=== PATIENT | female | born 1995 | race Caucasian/White ===

== ENCOUNTER 2017-12-15 19:35 | Emergency (ER) | payer OTHER ==
[2017-12-15] MEDS: ORPHENADRINE CITRATE 60 MG/2 ML VIAL. IM ×2 (20:16)
[2017-12-15] MEDS: KETOROLAC 60 MG/2 ML INJ. IM ×2 (20:16)
== END 2017-12-15 20:45 | disposition home or self-care (01) ==
LOC: ER 19:35
DX: S16.1XXA Strain of muscle, fascia and tendon at neck level, initial encounter (principal); F17.200 Nicotine dependence, unspecified, uncomplicated; Z88.1 Allergy status to other antibiotic agents; Z91.048 Other nonmedicinal substance allergy status; V49.49XA Driver injured in collision with other motor vehicles in traffic accident, initial encounter; Y92.412 Parkway as the place of occurrence of the external cause; Y93.89 Activity, other specified; Y99.8 Other external cause status
CPT/HCPCS: 70450; 72125; 96372; 99284-25; J1885; J2360

== ENCOUNTER 2018-09-08 13:32 | Emergency (ER) | payer OTHER ==
[~2018-09-08] VITALS: Ht 177.8 cm; Wt 65.8 kg
[~2018-09-08 13:32] MED LIST: CYCL10TA2 PO; NAPR-683 PO
[2018-09-08] MEDS ORDERED: ASPIRIN 325 MG TABLET PO ONE (14:30)
[2018-09-08 14:46] LABS: BASO % 1 % (0-3); EOS # 0.1 x10^3/uL (0.0-0.7); EOS % 2 % (0-3); HEMATOCRIT 41.2 % (36.0-47.0); HEMOGLOBIN 13.8 g/dL (12.0-15.5); LYMPH # 1.5 x10^3/uL (1.0-4.8); LYMPH % 22 % (24-48); MEAN CORPUSCULAR HEMOGLOBIN 32 pg (25-35); MEAN CORPUSCULAR HGB CONC 34 g/dL (31-37); MEAN CORPUSCULAR VOLUME 94 fL (79-100); MONO # 0.5 x10^3/uL (0.0-1.1); MONO % 8 % (0-9); NEUT # 4.6 x10^3uL (1.8-7.7); NEUT % 68 % (31-73); PLATELET COUNT 207 x10^3/uL (140-400); RED BLOOD COUNT 4.38 x10^6/uL (3.50-5.40); RED CELL DISTRIBUTION WIDTH 13.4 % (11.5-14.5); WHITE BLOOD COUNT 6.8 x10^3/uL (4.0-11.0)
[2018-09-08 14:56] LABS: BARBITURATES NEG (NEG); BENZODIAZEPINES NEG (NEG); CANNABINOIDS POS (NEG); COCAINE NEG (NEG); METHADONE NEG (NEG); OPIATES NEG (NEG); PHENCYCLIDINE NEG (NEG)
[2018-09-08 15:02] LABS: AMPHETAMINE/METHAMPHETAMINE NEG (NEG)
[2018-09-08 15:08] LABS: CALCIUM 9.7 mg/dL (8.5-10.1); CREATININE 0.9 mg/dL (0.6-1.0); GFR 77.6; MAGNESIUM 1.9 mg/dL (1.8-2.4)
--- NOTE | 2018-09-08 15:10 | RAD ---
Exam: AP portable chest History: Chest pain for 3 days. Comparison: None. Findings: The heart and mediastinal structures are within normal limits for size. Lungs are without infiltrate. No pleural effusion or pneumothorax is identified. Impression: 1. No acute cardiopulmonary process. Electronically signed by: Rob Jesus MD (09/08/2018 3:07 PM) [place] [id number]
--- NOTE | 2018-09-08 15:18 | EKG ---
[facility] [address] [place] [address] Test Date: 2018-09-08 Test Time: 14:37:36 Pat Name: JEANETH MCLEAN Department: Room: Gender: F Architectural Technologist: : 1995 Requested By: AMANDA KNOX Order Number: [id number] Reading MD: Mega Carlos MD Measurements Intervals [place] Rate: 71 P: 0 [place]: 146 QRS: 71 QRSD: 82 T: 47 QT: 340 QTc: 374 Interpretive Statements SINUS RHYTHM Electronically Signed On 09-11-2018 11:50:09 CDT by Mega Carlos MD
[2018-09-08] MEDS ORDERED: NAPR500T8 PO (16:04)
[2018-09-08] MEDS ORDERED: PRED50TA PO (16:04)
[2018-09-08] MEDS ORDERED: BENZ100C PO (16:04)
[2018-09-08] MEDS ORDERED: VENTOLIN HFA18 GM INH (16:04)
--- NOTE | 2018-09-08 16:04 | PHYS DOC ---
Past Medical History Past Medical History: No Pertinent History Past Surgical History: Tonsillectomy Alcohol Use: None Drug Use: None Adult General Chief Complaint Chief Complaint: CHEST WALL PAIN HPI HPI Patient is a 22 year old female with history of smoking, who presents today complaining of 8 out of 10 left-sided chest pain worse when she takes energy drinks and palpates her chest that began one and a half months ago. Patient states nothing specifically relieves the pain. She is also complaining of a cough for 1-1/2 months. Denies any fever. She states she stopped taking energy drinks 3 days ago with no relief to her symptoms. Review of Systems Review of Systems Constitutional: Denies fever or chills [] Eyes: Denies change in visual acuity, redness, or eye pain [] HENT: Denies nasal congestion or sore throat [] Respiratory: Reports cough, denies shortness of breath [] Cardiovascular: Reports left-sided chest pain. GI: Denies abdominal pain, nausea, vomiting, bloody stools or diarrhea [] : Denies dysuria or hematuria [] Musculoskeletal: Denies back pain or joint pain [] Integument: Denies rash or skin lesions [] Neurologic: Denies headache, focal weakness or sensory changes [] All other systems were reviewed and found to be within normal limits, except as documented in this note. Current Medications Current Medications Current Medications Medications (Trade) Dose Ordered Sig/Bear Start Time Stop Time Status Last Admin Dose Admin Aspirin (Boris Aspirin) 325 mg 1X ONCE 09/08/18 14:30 09/08/18 14:31 DC 09/08/18 14:30 325 MG Allergies Allergies Allergies Coded Allergies Type Severity Reaction Last Updated Verified adhesive Allergy Unknown 12/15/17 Yes amoxicillin Allergy Unknown 12/15/17 Yes clavulanic acid Allergy Unknown 12/15/17 Yes latex Allergy Unknown 12/15/17 Yes Physical Exam Physical Exam Constitutional: Well developed, well nourished, no acute distress, non-toxic appearance. [] HENT: Normocephalic, atraumatic, bilateral external ears normal, oropharynx moist, no oral exudates, nose normal. [] Eyes: PERRLA, EOMI, conjunctiva normal, no discharge. [] Neck: Normal range of motion, no tenderness, supple, no stridor. [] Cardiovascular:Heart rate regular rhythm, no murmur, reproducible left sided chest pain on palpation of the left chest.[] Lungs & Thorax: Bilateral breath sounds clear to auscultation [] Abdomen: Bowel sounds normal, soft, no tenderness, no masses, no pulsatile masses. [] Skin: Warm, dry, no erythema, no rash. [] Back: No tenderness, no CVA tenderness. [] Extremities: No tenderness, no cyanosis, no clubbing, ROM intact, no edema. [] Neurologic: Alert and oriented X 3, normal motor function, normal sensory function, no focal deficits noted. [] Psychologic: Affect normal, judgement normal, mood normal. [] Current Patient Data Vital Signs Vital Signs Date Time Temp Pulse Resp B/P (MAP) Pulse Ox O2 Delivery O2 Flow Rate FiO2 09/08/18 16:28 99 16 116/68 (84) 09/08/18 14:09 98.2 99 Room Air 98.2 Lab Values Laboratory Tests Test 09/08/18 14:02 09/08/18 14:07 09/08/18 14:25 Urine Opiates Screen Neg (NEG) Urine Methadone Screen Neg (NEG) Urine Barbiturates Neg (NEG) Urine Phencyclidine Screen Neg (NEG) Urine Amphetamine/Methamphetamine Neg (NEG) Urine Benzodiazepines Screen Neg (NEG) Urine Cocaine Screen Neg (NEG) Urine Cannabinoids Screen Pos (NEG) Urine Ethyl Alcohol Neg (NEG) POC Urine HCG, Qualitative Hcg negative (Negative) White Blood Count 6.8 x10^3/uL (4.0-11.0) Red Blood Count 4.38 x10^6/uL (3.50-5.40) Hemoglobin 13.8 g/dL (12.0-15.5) Hematocrit 41.2 % (36.0-47.0) Mean Corpuscular Volume 94 fL (79-100) Mean Corpuscular Hemoglobin 32 pg (25-35) Mean Corpuscular Hemoglobin Concent 34 g/dL (31-37) Red Cell Distribution Width 13.4 % (11.5-14.5) Platelet Count 207 x10^3/uL (140-400) Neutrophils (%) (Auto) 68 % (31-73) Lymphocytes (%) (Auto) 22 % (24-48) L Monocytes (%) (Auto) 8 % (0-9) Eosinophils (%) (Auto) 2 % (0-3) Basophils (%) (Auto) 1 % (0-3) Neutrophils # (Auto) 4.6 x10^3uL (1.8-7.7) Lymphocytes # (Auto) 1.5 x10^3/uL (1.0-4.8) Monocytes # (Auto) 0.5 x10^3/uL (0.0-1.1) Eosinophils # (Auto) 0.1 x10^3/uL (0.0-0.7) Basophils # (Auto) 0.0 x10^3/uL (0.0-0.2) Sodium Level 140 mmol/L (136-145) Potassium Level 4.0 mmol/L (3.5-5.1) Chloride Level 104 mmol/L (98-107) Carbon Dioxide Level 25 mmol/L (21-32) Anion Gap 11 (6-14) Blood Urea Nitrogen 13 mg/dL (7-20) Creatinine 0.9 mg/dL (0.6-1.0) Estimated GFR (Cockcroft-Gault) 77.6 Glucose Level 92 mg/dL (70-99) Calcium Level 9.7 mg/dL (8.5-10.1) Magnesium Level 1.9 mg/dL (1.8-2.4) Troponin I Quantitative < 0.017 ng/mL (0.000-0.055) AU-Uvx-Z-Type Natriuretic Peptide 82 pg/mL (0-124) Thyroid Stimulating Hormone (TSH) 1.999 uIU/mL (0.358-3.74) Laboratory Tests 09/08/18 14:25 Laboratory Tests 09/08/18 14:25 EKG EKG 14:[address] Levy sinus rhythm Hr 71 no STEMI[] Radiology/Procedures Radiology/Procedures []PROCEDURE: PORTABLE CHEST 1V Exam: AP portable chest History: Chest pain for 3 days. Comparison: None. Findings: The heart and mediastinal structures are within normal limits for size. Lungs are without infiltrate. No pleural effusion or pneumothorax is identified. Impression: 1. No acute cardiopulmonary process. Electronically signed by: Rob Petty MD (09/08/2018 3:07 PM) [facility] DICTATED and SIGNED BY: ROB PETTY MD DATE: 09/08/18 8078 Course & Med Decision Making Course & Med Decision Making Pertinent Labs and Imaging studies reviewed. (See chart for details) This is a 22-year-old female patient presenting to the ED today with chest pain for 1-1/2 months as well as a cough. Patient is a smoker, she was advised to consider smoking cessation. EKG, labs and chest x-ray were negative. Patient was discharged with instructions to take naproxen for her pain. Also discharged with albuterol inhaler prednisone and Tessalon Perles to cover her for bronchitis. Follow-up with her PCP in 1-2 weeks. Staff Physician Addendum: I was working in the ER during the course of this patient's visit. I was available for consultation as needed, but I was not directly involved in the care of this patient. Dragon Disclaimer Dragon Disclaimer This electronic medical record was generated, in whole or in part, using a voice recognition dictation system. Departure Departure Impression: Primary Impression: Acute bronchitis Additional Impressions: Acute costochondritis Smoking addiction Disposition: HOME, SELF-CARE Condition: STABLE Referrals: MIYA AGUILAR MD (PCP) follow up in one week Patient Instructions: Acute Bronchitis, [id number]-rl-[id number], Costochondritis, Smoking Cessation Additional Instructions: You were seen for chest pain and bronchitis. Use the medications prescribed as ordered. Consider smoking cessation. Follow-up with your doctor in one week. Scripts Naproxen (NAPROXEN) 500 Mg Tablet.dr 1 TAB PO BID, #60 TAB 2 Refills Prov: AMANDA KNOX APRN 09/08/18 Prednisone (PREDNISONE) 50 Mg Tablet 1 TAB PO DAILY, #5 TAB Prov: AMANDA KNOX APRN 09/08/18 Benzonatate (TESSALON PERLE) 100 Mg Capsule 1 CAP PO TID, #30 CAP Prov: AMANDA KNOX APRN 09/08/18 Albuterol Sulfate (VENTOLIN HFA INHALER) 18 Gm Hfa.aer.ad 2 PUFF INH Q4HRS for FOR ASTHMA, #1 INHALER 0 Refills Prov: AMANDA KNOX APRN 09/08/18 Problem Qualifiers Primary Impression: Acute bronchitis Bronchitis organism: unspecified organism Qualified Codes: J20.9 - Acute bronchitis, unspecified AMANDA KNOX APRN Sep 08, 2018 16:04 IAIN LEVY MD Sep 08, 2018 17:32
[2018-09-08 16:28] VITALS: BP 116/68
== END 2018-09-08 16:27 | disposition home or self-care (01) ==
LOC: ER 13:32
DX: M94.0 Chondrocostal junction syndrome [Tietze] (principal); J20.9 Acute bronchitis, unspecified; F17.200 Nicotine dependence, unspecified, uncomplicated; Z90.89 Acquired absence of other organs; Z88.1 Allergy status to other antibiotic agents; Z88.8 Allergy status to other drugs, medicaments and biological substances; Z91.040 Latex allergy status
CPT/HCPCS: 36415; 71045; 80048; 80307; 81025; 83735; 83880; 84443; 84484; 85025; 93005; 99285-25; G0479

== ENCOUNTER → 2021-05-18 | Outpatient (CLI) | payer BC, OTHER ==
[~2021-05-18] MED LIST changes: +BENZ100C PO; +NAPR500T8 PO; +PRED50TA PO; +VENTOLIN HFA18 GM INH
--- NOTE | 2021-05-18 09:22 | RAD ---
INDICATION: Reason: GENERALIZED ABD PAIN / Spl. Instructions: / History: COMPARISON: None. TECHNIQUE: Grayscale and color ultrasound images obtained through the abdomen. FINDINGS: Pancreas: Limited visualization secondary to overlying bowel gas. Liver: Echotexture within normal limits. Gallbladder: No definite stones or wall thickening. Partially contracted. Common Bile Duct: Not dilated. Right Kidney: No hydronephrosis. Left Kidney: No hydronephrosis. Spleen: Unremarkable. Aorta/IVC: Visualized portion unremarkable. Only partially seen secondary to bowel gas. IMPRESSION: * No hydronephrosis. * No common bile duct dilation or gallstones. Electronically signed by: Adan Martinez MD (05/18/2021 9:19 AM) [id number]
== END ==
LOC: US 07:16
PROVIDERS: ATTEND Family Medicine
DX: R10.11 Right upper quadrant pain (principal)
CPT/HCPCS: 76700

== ENCOUNTER → 2021-07-07 | Outpatient (CLI) | payer BC ==
--- NOTE | 2021-07-07 13:36 | RAD ---
EXAM: Nuclear hepatobiliary scan. HISTORY: Pain and bloating. TECHNIQUE: Following intravenous administration of 5.3 mCi Tc 99m Choletec, anterior images of the ab domen were obtained at five minute intervals through one hour. Subsequently, 8 Ounces Ensure Drink wa s ingested and additional images to assess gallbladder ejection fraction were obtained. FINDINGS: There is prompt radiotracer uptake by the liver. No focal defect is seen. There is normal e xcretion into the biliary tree. The gallbladder is visualized within 5 minutes and there is free flow into the duodenum. The gallbladder ejection fraction is 28 percent. IMPRESSION: Slightly decreased gallbladder ejection fraction of 28 percent. Electronically signed by: Coral Mackenzie MD (07/07/2021 1:33 PM) [id number]
== END ==
LOC: NM 09:44
PROVIDERS: ATTEND Internal Medicine Gastroenterology
DX: R10.11 Right upper quadrant pain (principal); R14.0 Abdominal distension (gaseous)
CPT/HCPCS: 78227; A9537

== ENCOUNTER 2021-07-26 06:53 | Day surgery (SDC) | payer BC ==
[~2021-07-26] VITALS: Ht 177.8 cm; Wt 87.0 kg
[~2021-07-26 06:53] MED LIST changes: +CETI10TA74 PO; +IV RINGERS,LACTATED 1000ML 1,000 ML IV SCH; +PROCHLORPERAZINE 10 MG/2 ML VIAL. IVP PRN; +VENL150C6 PO; +fentaNYL PF VIAL 100 MCG/2 ML VIAL IVP PRN
[2021-07-26] MEDS ORDERED: SURGICEL HEMOSTAT 4X8 EACH. ONE (07:07)
[2021-07-26] MEDS ORDERED: IOHEXOL 300 MG/ML 50 ML VIAL. ONE (07:07)
[2021-07-26] MEDS ORDERED: BUPIVACAINE MPF 0.5% 30 ML VIAL. ONE (07:08)
[2021-07-26] MEDS ORDERED: LIDOCAINE 2% PF 5 ML VIAL. ONE (07:14)
[2021-07-26] MEDS ORDERED: PROPOFOL 10 MG/ML (20ML) VIAL. IV ONE (07:14)
[2021-07-26 07:36] VITALS: BP 130/80
[2021-07-26] MEDS ORDERED: ROCURONIUM 50 MG/5 ML VIAL. ONE (07:37)
[2021-07-26] MEDS ORDERED: ONDANSETRON PF 4 MG/2 ML VIAL. ONE ×2 (07:38→10:33)
[2021-07-26] MEDS ORDERED: fentaNYL PF VIAL 100 MCG/2 ML VIAL ONE ×3 (07:38→08:55)
[2021-07-26] MEDS ORDERED: DEXAMETHASONE SOD PHOS 4 MG/ML VIAL ONE (07:38)
[2021-07-26] MEDS ORDERED: MIDAZOLAM HCL/PF 2 MG/2 ML VIAL. ONE (07:39)
[2021-07-26] MEDS ORDERED: GLYCOPYRROLATE 1 MG/5 ML VIAL. ONE (07:40)
[2021-07-26] MEDS ORDERED: ePHEDrine PF IN SALINE 50 MG/10 ML SYRINGE. IV ONE (07:40)
[2021-07-26] MEDS ORDERED: FAMOTIDINE 20 MG/2 ML VIAL ONE (08:20)
[2021-07-26] MEDS ORDERED: diphenhydrAMINE 50 MG/ML VIAL ONE (08:20)
[2021-07-26] MEDS ORDERED: KETOROLAC 30 MG/ML VIAL. ONE (08:20)
[2021-07-26] MEDS ORDERED: NEOSTIGMINE METHYLSULFATE 5 MG/5 ML SYRINGE. ONE (08:43)
[2021-07-26] MEDS ORDERED: SEVOFLURANE 61 TO 120 MINUTES. IH ONE (08:46)
--- NOTE | 2021-07-26 09:22 | PDOC4 ---
Operative Note Operative Note Operative Note: Preoperative Diagnosis: Biliary dyskinesia Postoperative Diagnosis: Same Procedure: Laparoscopic cholecystectomy with intraoperative cholangiogram Surgeons: Camacho Book Retailer: LUCHO Beebe Anesthesia: Gen. Estimated Blood Loss: 10 mL Specimen: Gallbladder to pathology Drains: None Complications: None Indications: The patient is a 25-year-old female who is referred with biliary dyskinesia. Surgical treatment was offered by means of a laparoscopic cholecystectomy. The risks of surgery were discussed which include bleeding, infection, bile duct injury, bile leak, pain, the potential for additional surgeries or procedures. The patient understands and would like to proceed. Description: The patient was taken to the operating room and laid supine on the operating table. General anesthesia was performed. The abdomen was prepped with ChloraPrep and draped in a standard surgical fashion. A small infraumbilic al incision was made with a scalpel. The Veress needle was then inserted and a pneumoperitoneum was then created. A 5 mm trocar was then inserted and the laparoscope was introduced. In the upper midabdomen a 5 mm trocar was inserted and in the right upper quadrant two 2.3 mm mini lap graspers were inserted. The gallbladder was retracted cephalad. The cystic duct was dissected free from surrounding tissues. One clip was placed on the duct near the gallbladder junction. An opening was made in the duct and a cholangiocatheter placed within and secured with a clip. Using contrast dye and fluoroscopy an intraoperative cholangiogram was performed that appeared unremarkable. The clip and catheter were then withdrawn. Three clips were placed on the cystic duct and it was divided. The cystic artery was then identified, dissected free, doubly clipped and divided as well. The gallbladder was then mobilized away from the liver with cautery. The umbilical 5 millimeter trocar was exchanged for an 11 millimeter trocar. The gallbladder was then placed in an endoscopic bag and extracted at the umbilical trocar site. The fascia there was closed with an 0 Vicryl suture and infiltrated with 0.5% marcaine. All blood and irrigation fluid was suctioned and hemostasis was good. The remaining ports were removed and the pneumoperitoneum was relieved. The skin incisions were closed using 4-0 Monocryl suture. Steri-Strips and dressings were then applied. The patient tolerated the procedure well and was sent to the recovery room in stable condition. At the end of the case all counts were correct. CHAKA GUTIERREZ MD Jul 26, 2021 09:22
[2021-07-26] MEDS ORDERED: OXYC1TAB15 PO (09:25)
--- NOTE | 2021-07-26 09:27 | DISCH ---
DISCHARGE INSTRUCTIONS Condition on Discharge Condition on Discharge: Stable Activity After Discharge Activity Instructions for Disc: Other, see below (No lifting over 20 lbs X 2 weeks, no driving while taking pain meds) Diet after Discharge Diet after Discharge: Regular Wound Incision Care Wound/Incision Care: Other, see below (may remove bandaids tomorrow and shower, steristrips will fall off on their own) Follow-Up Follow up with: Dr Gutierrez in office in 2 weeks, call for appointment [phone] CHAKA GUTIERREZ MD Jul 26, 2021 09:27
--- NOTE | 2021-07-26 09:41 | RAD ---
EXAM: Intraoperative cholangiogram. HISTORY: Pain. Cholecystectomy. COMPARISON: 05/18/2021. FINDINGS: 2 fluoroscopic images were obtained during an intraoperative cholangiogram. The total fluor oscopy time was 16.8 seconds. There is contrast opacification of the biliary tree and proximal small bowel. There is no evidence of a retained stone. IMPRESSION: Intraoperative cholangiogram, without evidence of a retained stone. Electronically signed by: Coral Mackenzie MD (07/26/2021 9:38 AM) [id number]
[2021-07-26] MEDS ORDERED: MORPHINE SULFATE 2 MG/ML INJ. ONE (09:45)
[2021-07-26] MEDS: MORPHINE SULFATE 2 MG/ML INJ. IVP PRN ×2 (09:49→10:01)
[2021-07-26] MEDS ORDERED: HYDROmorphone 2 MG/ML VIAL ONE (09:59)
[2021-07-26] MEDS ORDERED: oxyCODONE/APAP 5/325 1 TAB TABLET PO ONE ×2 (10:00)
[2021-07-26] MEDS: HYDROmorphone 2 MG/ML VIAL IVP PRN ×3 (10:02→10:40)
[2021-07-26 10:19] VITALS: BP 127/82
[2021-07-26] MEDS ORDERED: ONDANSETRON PF 4 MG/2 ML VIAL. IVP ONE (10:45)
[2021-07-26] MEDS ORDERED: PROCHLORPERAZINE 10 MG/2 ML VIAL. ONE (11:02)
--- NOTE | 2021-07-28 17:10 | PATHOLOGY ---
[facility] Accession Number: [id number] . 01 Material submitted: . gallbladder - GALLBLADDER AND CONTENTS . 01 Clinical history: . BILIARY DYSKINESIA LAP PHANI W/ GRAMS . 02 Diagnosis: Gallbladder, laparoscopic cholecystectomy: - Chronic cholecystitis. . (JPM:mm; 07/28/2021) [facility] 07/28/2021 1028 Local . 02 Comment: There are no calculi identified within the gallbladder lumen or specimen container. Sections of the gallbladder show congestion and focal very mild chronic inflammation. There is no evidence of malignancy. . (JPM:mml; 07/28/2021) . 02 Electronically signed: . Devon Glez MD, Pathologist NPI- [id number] . 01 Gross description: . Fixative: Formalin Labeled: Nena Cronin, gallbladder and contents Specimen received: Intact Dimensions: 6.6 x 2.9 x 2.8 cm Lymph node: None Serosa: Ugarte-blue, dusky and unremarkable Calculi: None Mucosa: Green and velvety without cotto stippling Average wall thickness: 0.2 cm Abnormalities: None A1: Gallbladder, represented ([facility]; 07/27/2021) DKA/DKA 07/27/2021 1055 Local . 02 Pathologist provided ICD-10: K81.1 . 02 CPT . 096898 Specimen Comment: A courtesy copy of this report has been sent to [phone], [phone] Specimen Comment: [id number] Specimen Comment: Report sent to / DR AGUILAR Performed at: [address], [place], [place] [id number] MD Sai Real MD Phone: [phone] Performed at: 02 [facility] [address] [place], [place] [id number] MD Devon Glez MD Phone: [phone]
== END 2021-07-26 11:25 | disposition home or self-care (01) ==
LOC: SURG 06:53
PROVIDERS: ATTEND Surgery
DX: K82.8 Other specified diseases of gallbladder (principal); Z20.822 Contact with and (suspected) exposure to COVID-19; K21.9 Gastro-esophageal reflux disease without esophagitis; F41.9 Anxiety disorder, unspecified; F32.9 Major depressive disorder, single episode, unspecified; F43.10 Post-traumatic stress disorder, unspecified; Z79.899 Other long term (current) drug therapy; Z98.890 Other specified postprocedural states
CPT/HCPCS: 47563; 74300; 81025; 87426; J0690; J0780; J1100; J1170; J1200; J1885; J2250; J2270; J2405; J2704; J2710; J3010; J3490; Q9967; 88304; A4213; A4314; A4315; A4344; A4657; A4930; C1887

== ENCOUNTER 2021-10-17 19:06 | Emergency (ER) | payer BC ==
[~2021-10-17] VITALS: Ht 177.8 cm; Wt 81.0 kg
[~2021-10-17 19:06] MED LIST changes: +CYCL10TA19 PO; -CYCL10TA2 PO; -IV RINGERS,LACTATED 1000ML 1,000 ML IV SCH; +OXYC1TAB15 PO; -PROCHLORPERAZINE 10 MG/2 ML VIAL. IVP PRN; -fentaNYL PF VIAL 100 MCG/2 ML VIAL IVP PRN
--- NOTE | 2021-10-17 19:32 | PHYS DOC ---
Past Medical History Past Medical History: No Pertinent History Past Surgical History: Tonsillectomy Smoking Status: Never Smoker Alcohol Use: None Drug Use: None General Adult EDM: Chief Complaint: CHEST PAIN HPI: HPI: Patient is a 25-year-old female who presents to the emergency department today for midsternal to left-sided chest pain that radiates into her back and to both of her arms that started around 1840 this evening. Patient rates her pain 6 out of 10. She describes it as a pressure pain. It is relieved by palpation. Patient is also reporting nausea. She denies any vomiting, abdominal pain, diarrhea, shortness of breath, dizziness. She is a current smoker. She denies any medical history other than PTSD and no family history of heart disease or sudden cardiac arrest. Review of Systems: Review of Systems: Respiratory: See HPI Cardiovascular: See HPI GI: See HPI Neurologic: See HPI Psychiatric: See HPI Heart Score: C/O Chest Pain: Yes HEART Score for Chest Pain: HEART Score for Chest Pain Response (Comments) Value History Slighlty/Non-Suspicious 0 ECG Nonspecific Repolarizatio 1 Age < 45 0 Risk Factors 1 or 2 Risk Factors 1 Troponin < Normal Limit 0 Total 2 Risk Factors: Risk Factors: DM, Current or recent (<one month) smoker, HTN, HLP, family history of CAD, obesity. Risk Scores: Score 0 - 3: 2.5% MACE over next 6 weeks - Discharge Home Score 4 - 6: 20.3% MACE over next 6 weeks - Admit for Clinical Observation Score 7 - 10: 72.7% MACE over next 6 weeks - Early Invasive Strategies Allergies: Allergies: Allergies Coded Allergies Type Severity Reaction Last Updated Verified Penicillins Allergy Intermediate 07/26/21 Yes adhesive Allergy Intermediate Rash 07/26/21 Yes latex Allergy Intermediate Rash 07/26/21 Yes amoxicillin Allergy Mild DIARRHEA/VOMITING 07/26/21 Yes clavulanic acid Allergy Mild DIARRHEA/VOMITING 07/26/21 Yes Physical Exam: PE: Constitutional: Well developed, well nourished, no acute distress, non-toxic appearance. [] HENT: Normocephalic, atraumatic, bilateral external ears normal, oropharynx moist, no oral exudates, nose normal. [] Eyes: PERRL, EOMI, conjunctiva normal, no discharge. [] Neck: Normal range of motion, no stridor Cardiovascular:Heart rate regular rhythm, no murmur [] Lungs & Thorax: Bilateral breath sounds clear to auscultation [] Abdomen: Bowel sounds normal, soft, no tenderness, no masses, no pulsatile masses. [] Skin: Warm, dry, no erythema, no rash. [] Back: Normal range of motion Extremities: No tenderness, no cyanosis, no clubbing, ROM intact, no edema. [] Neurologic: Alert and oriented X 3, normal motor function, normal sensory function, no focal deficits noted. [] Psychologic: Affect normal, judgement normal, mood normal. [] Current Patient Data: Labs: Laboratory Tests Test 10/17/21 19:45 White Blood Count 8.8 x10^3/uL Red Blood Count 4.59 x10^6/uL Hemoglobin 14.0 g/dL Hematocrit 42.2 % Mean Corpuscular Volume 92 fL Mean Corpuscular Hemoglobin 31 pg Mean Corpuscular Hemoglobin Concent 33 g/dL Red Cell Distribution Width 13.7 % Platelet Count 238 x10^3/uL Neutrophils (%) (Auto) 61 % Lymphocytes (%) (Auto) 30 % Monocytes (%) (Auto) 6 % Eosinophils (%) (Auto) 2 % Basophils (%) (Auto) 1 % Neutrophils # (Auto) 5.4 x10^3/uL Lymphocytes # (Auto) 2.7 x10^3/uL Monocytes # (Auto) 0.5 x10^3/uL Eosinophils # (Auto) 0.2 x10^3/uL Basophils # (Auto) 0.0 x10^3/uL Sodium Level 140 mmol/L Potassium Level 3.7 mmol/L Chloride Level 104 mmol/L Carbon Dioxide Level 21 mmol/L Anion Gap 15 Blood Urea Nitrogen 17 mg/dL Creatinine 0.7 mg/dL Estimated GFR (Cockcroft-Gault) 101.1 BUN/Creatinine Ratio 24 Glucose Level 69 mg/dL Calcium Level 8.8 mg/dL Total Bilirubin 0.1 mg/dL Aspartate Amino Transf (AST/SGOT) 59 U/L Alanine Aminotransferase (ALT/SGPT) 52 U/L Alkaline Phosphatase 83 U/L Troponin I High Sensitivity 6 ng/L Total Protein 7.4 g/dL Albumin 4.2 g/dL Albumin/Globulin Ratio 1.3 EKG: EKG: EKG performed by ER staff at 1920 shows sinus rhythm with a rate of 85, QTC of 390, no STEMI read by Dr. Scott at 1921. [] Radiology/Procedures: Radiology/Procedures: []PROCEDURE: PORTABLE CHEST 1V EXAMINATION: XR CHEST 1V CLINICAL HISTORY: Chest pain EXAM DATE/TIME: 10/17/2021 8:05 PM COMPARISON: 09/08/2018 FINDINGS: Lines, Tubes, and Devices: None. Cardiomediastinal Silhouette: Within normal limits. Lungs and Pleura: No evidence of focal airspace consolidation or pleural eff usion. Pulmonary vasculature unremarkable. Bones and Soft Tissues: No acute osseous abnormality. IMPRESSION: No evidence of acute cardiopulmonary abnormality or significant interval change. Electronically signed by: Dandy Hall DO (10/17/2021 8:20 PM) [facility] DICTATED and SIGNED BY: DANDY HALL DO DATE: 10/17/[id number] 0 Course & Med Decision Making: Course & Med Decision Making Pertinent Labs and Imaging studies reviewed. (See chart for details) [] Patient presents to the emergency department for left-sided chest pain that started at 1840 today. Work-up in the ER consisted of blood work, EKG and chest x-ray. Patient's lab work was unremarkable. Her heart score is 2. Due to some nonspecific changes and her smoking history. Patient is requesting to go home. Patient advised to follow-up with her primary care provider. I discussed with patient all findings and diagnostic testing as well as the need to follow- up with PCP for further evaluation and treatment or return to the ER if any new or worsening symptoms. Strict return precautions were also discussed at length. Patient voiced understanding and agreement with the plan. Patient is hemodynamically stable at the time of disposition. Dragon Disclaimer: Dragon Disclaimer: This electronic medical record was generated, in whole or in part, using a voice recognition dictation system. Departure Departure Impression: Primary Impression: Atypical chest pain Disposition: HOME / SELF CARE / HOMELESS Condition: GOOD Referrals: MIYA AGUILAR MD (PCP) Patient Instructions: Chest Pain (Nonspecific) Additional Instructions: You were seen in the emergency department today for chest pain. Your blood work was unremarkable, your EKG did not show any significant findings. Chest x-ray was negative for any acute findings. At this time, does not appear that you are experiencing acute coronary syndrome. However if your symptoms persist or worsen you need to return to an ER for immediate reevaluation. Please follow-up with your primary care provider tomorrow regarding your ER visit. Please return to the emergency department if you develop worsening of your chest pain, shortness of breath, dizziness, palpitations, intractable nausea or vomiting. BRENTON MINAYA SENIOR COMPENSATION CONSULTANT Oct 17, 2021 19:32
[2021-10-17 20:16] LABS: BASO % 1 % (0-3); EOS # 0.2 x10^3/uL (0.0-0.7); EOS % 2 % (0-3); HEMATOCRIT 42.2 % (36.0-47.0); LYMPH # 2.7 x10^3/uL (1.0-4.8); LYMPH % 30 % (24-48); MEAN CORPUSCULAR HEMOGLOBIN 31 pg (25-35); MEAN CORPUSCULAR HGB CONC 33 g/dL (31-37); MEAN CORPUSCULAR VOLUME 92 fL (79-100); MONO # 0.5 x10^3/uL (0.0-1.1); MONO % 6 % (0-9); NEUT # 5.4 x10^3/uL (1.8-7.7); NEUT % 61 % (31-73); PLATELET COUNT 238 x10^3/uL (140-400); RED BLOOD COUNT 4.59 x10^6/uL (3.50-5.40); RED CELL DISTRIBUTION WIDTH 13.7 % (11.5-14.5); WHITE BLOOD COUNT 8.8 x10^3/uL (4.0-11.0)
--- NOTE | 2021-10-17 20:23 | RAD ---
EXAMINATION: XR CHEST 1V CLINICAL HISTORY: Chest pain EXAM DATE/TIME: 10/17/2021 8:05 PM COMPARISON: 09/08/2018 FINDINGS: Lines, Tubes, and Devices: None. Cardiomediastinal Silhouette: Within normal limits. Lungs and Pleura: No evidence of focal airspace consolidation or pleural effusion. Pulmonary vasculat ure unremarkable. Bones and Soft Tissues: No acute osseous abnormality. IMPRESSION: No evidence of acute cardiopulmonary abnormality or significant interval change. Electronically signed by: Dandy Paulson DO (10/17/2021 8:20 PM) FELICITAS
[2021-10-17 20:35] LABS: CALCIUM 8.8 mg/dL (8.5-10.1); CREATININE 0.7 mg/dL (0.6-1.0); GFR 101.1; POTASSIUM 3.7 mmol/L (3.5-5.1)
[2021-10-17 20:40] LABS: ALBUMIN 4.2 g/dL (3.4-5.0); ALBUMIN/GLOBULIN RATIO 1.3 (1.0-1.7); TOTAL BILIRUBIN 0.1 mg/dL (0.2-1.0); TOTAL PROTEIN 7.4 g/dL (6.4-8.2)
[2021-10-17 20:48] VITALS: BP 111/67
--- NOTE | 2021-10-17 22:36 | EKG ---
[facility] [address] [place] [address] Test Date: 2021-10-17 Test Time: 19:20:17 Pat Name: JEANETH MCLEAN Department: Room: Gender: F Donations Attendant: : 1995 Requested By: BRODY ERVIN Order Number: [id number] Reading MD: Rickie Dubon Measurements Intervals [place] Rate: 85 P: 56 [place]: 156 QRS: 51 QRSD: 84 T: 33 QT: 328 QTc: 390 Interpretive Statements SINUS RHYTHM LEFT ATRIAL ABNORMALITY Electronically Signed On 10-19-2021 12:43:54 MINK SLICER by Rickie Dubon
== END 2021-10-17 21:00 | disposition home or self-care (01) ==
LOC: ER 19:06
DX: R07.2 Precordial pain (principal); M79.602 Pain in left arm; M79.601 Pain in right arm; Z88.0 Allergy status to penicillin; Z88.1 Allergy status to other antibiotic agents; Z91.041 Radiographic dye allergy status; Z88.8 Allergy status to other drugs, medicaments and biological substances
CPT/HCPCS: 36415; 71045; 80053; 84484; 85025; 93005; 99285-25